=== PATIENT | female | born 1940 | race Caucasian/White ===

== ENCOUNTER 2022-01-11 21:38 | Observation (INO) | payer MEDICARE, MEDICAID, SELFPAY ==
--- NOTE | ~2022-01-11 | CT_ITS ---
EXAMINATION: CT HEAD WITHOUT CONTRAST CT CERVICAL SPINE WITHOUT CONTRAST CLINICAL INFORMATION: Fall. Pain. COMPARISON: CT head and cervical spine from 09/07/2009. TECHNIQUE: Contiguous axial imaging was performed from the skull base to vertex without intravenous administration of contrast. Contiguous axial imaging was performed from the upper chest through the skull base without intravenous administration of contrast. Coronal and sagittal reformats were obtained at the acquisition workstation. This CT examination was performed using dose optimization techniques as appropriate, variously including the following: *Automated exposure control. *Adjustment of mA and/or kV according to patient size (this includes techniques or standardized protocols for targeted exams where dose is matched to indication/reason for exam; i.e. extremities or head). *Use of iterative reconstruction technique. DLP: 1039 mGy-cm FINDINGS: Head: There is no evidence of acute intracranial hemorrhage or edematous territorial infarction. Scattered hypoattenuation in the periventricular and deep white matter are consistent with moderate microangiopathy. Coates-white matter differentiation is preserved. Proportional prominence of the ventricles and sulcal spaces. No evidence for obstructive hydrocephalus. Mild prominence of the CSF space posterior to the cerebellum. No abnormal mass effect or midline shift. No extra-axial fluid collections. Calcific atherosclerotic disease of the intracranial internal carotid and vertebral arteries. No hyperdense vessel sign. Small subgaleal and subcutaneous hematoma along the posterior vertex, measuring up to 0.5 cm in depth. No associated osseous abnormalities. No acute soft tissue or osseous abnormalities. Mild mucosal thickening of the paranasal sinuses. The mastoid air cells and middle ear cavities are clear. Bilateral lens extractions. Cervical Spine: The atlantooccipital and atlantoaxial articulations remain well aligned. Straightening of the normal cervical lordosis. Otherwise, there is anatomic alignment of the vertebral bodies and posterior elements. No evidence of acute fracture or subluxation. The vertebral body heights are maintained. Moderate degenerative disc disease at C5-C6 and C6-C7 with disc/osteophyte complex formation. Facet and uncovertebral joint arthropathy leads osseous encroachment on the neural foramina at C5-C6 and C6-C7. There is no prevertebral soft tissue swelling. The thyroid gland and remaining cervical soft tissues are normal in appearance. The lung apices demonstrate no abnormalities. CT/CT cervical spine wo con IMPRESSION: 1. No evidence of acute intracranial hemorrhage or edematous territorial infarction. Moderate underlying microangiopathy and generalized cerebral volume loss. 2. No evidence of acute fracture or traumatic subluxation of the cervical spine. Mild to moderate multilevel degenerative spondyloarthropathy of the cervical spine. 3. Small posterior scalp hematoma without associated osseous abnormalities.
[2022-01-11 21:43] VITALS: BP 151/68; PULSE 91; RESP 18; TEMP 37.6; O2SAT 96; BMI 29.2
--- NOTE | 2022-01-11 22:34 | ED_ITS ---
HPI - Fall General Chief Complaint: Fall Stated Complaint: head lac - Fall Time Seen by Provider: 01/11/22 22:34 Source: family Limitations: altered mental status History of Present Illness HPI Narrative: Patient with history of dementia legally blind was going to the bathroom while on the way she fell came with laceration to back of the head patient has dementia unwitnessed fall patient does not remember what cause of fall patient does not fall very often and able to manage at home without fall patient denied any chest pain but does not know what made her fall patient has early dementia and forgetfulness Related Data Allergies Allergy/AdvReac Type Severity Reaction Status Date / Time No Known Allergies Allergy Unknown Unverified 05/18/20 16:50 [No Known Allergies*] Review of Systems Review of Systems: Yes all other systems are reviewed and are negative [facility] Social History Social History Advance Directives: No Physical Exam Vital Signs: Vital Signs: Last Vital Signs Temp 97.5 F 01/12/22 00:00 Pulse 84 01/12/22 00:00 Resp 18 01/12/22 00:00 BP 150/79 H 01/12/22 00:00 Pulse Ox 97 01/12/22 00:00 BMI result Body Mass Index 29.2 Appearance: Alert. And awake No acute distress. Eyes: PERRLA, No Nystagmus legally blind HEENT: Pharynx normal. Oral Mucosa laceration at the occipital area Neck: Normal inspection. Neck supple. No midline tenderness CVS: Normal heart rate and rhythm. Pulses normal. Respiratory: No respiratory distress. Equal air entry bilateral, no wheezing/rales/rhonchi Abdomen: Soft and nontender. Bowel sounds are present, no mass palpable, Skin: Skin warm and dry. Normal skin color. Normal skin turgor. Extremities: No lower extremity edema. No calf tenderness Neuro: Oriented X 3. No motor deficit. Procedures Laceration Laceration 1: Site: scalp Size (cm): 3 Description: linear Skin layer closed with: other (arianne #5) MDM - Fall MDM Narrative Medical decision making narrative: Patient status post fall likely mechanical or exact etiology not very clear as patient is forgetful and does not know what made her fall she has elevated troponin to 70 without any significant EKG changes, patient had elevated troponin in 03/20 also will repeat troponin patient takes baby aspirin daily at this time there is no chest pain will admit patient for possible syncope and elevated troponin. CT head and C-spine negative Medical Records Attestation: I reviewed the patient's medical records. Lab Data Attestation: I reviewed the patient's lab results. Result diagrams: 01/12/22 00:16 01/12/22 00:16 Labs: Lab Results 01/12/22 01/12/22 01/12/22 Range/Units 00:16 00:16 00:16 WBC 9.2 (4.8-10.8) X10*3/uL RBC 5.00 (4.20-5.50) X10*6/uL Hgb 13.7 (12.0-16.0) g/dl Hct 42.7 (37.0-47.0) % MCV 85.4 (80.0-98.0) fL MCH 27.4 (27.0-33.0) pg MCHC 32.1 (31.0-35.0) g/dl RDW 13.5 (11.0-16.0) % Plt Count 163 (160-400) X10*3/uL MPV 11.2 (9.4-12.3) fL Immature Gran % (Auto) 0.5 H (0.0-0.4) % Neut % (Auto) 79.3 H (45-73) % Lymph % (Auto) 9.8 L (20-40) % [place] % (Auto) 8.9 (2-11) % Eos % (Auto) 1.1 (0-4) % Baso % (Auto) 0.4 (0-2) % Lymph # (Auto) 0.9 L (1.2-4.9) X10*3/uL [place] # (Auto) 0.8 (0.1-1.2) X10*3/uL Eos # (Auto) 0.1 (0.0-0.4) X10*3/uL Baso # (Auto) 0.0 (0.0-0.2) X10*3/uL Abs Immat Gran (auto) 0.05 H (0.00-0.03) X10*3/uL Absolute Neuts (auto) 7.3 (2.0-8.3) x10*3/uL Absolute Nucleated RBC 0.000 (0.0-0.012) X10*3/uL Nucleated RBC % (auto) 0.0 (0.0-0.2) /100WBC Sodium 135 (135-145) mmol/L Potassium 4.2 (3.3-5.1) mmol/L Chloride 102 (96-108) mmol/L Carbon Dioxide 22 (22-29) mmol/L Anion Gap 15 (12-20) BUN 22 H (9-16) mg/dL Creatinine 1.18 (0.5-1.4) mg/dL Estim Creat Clear Calc 34.9 Estimated GFR 44 Random Glucose 134 H (60-115) mg/dL Calcium 9.2 (8.4-10.2) mg/dL Total Bilirubin 0.4 (0.0-1.0) mg/dL AST 30 (5-31) U/L ALT 20 (0-31) U/L Alkaline Phosphatase 68 (39-117) U/L Troponin I High Sens 70.2 H* (<3.5-17.0) ng/L Total Protein 7.0 (6.5-8.0) g/dL Albumin 3.8 (3.5-5.0) g/dL COVID-19 (YOSSI) (Negative) COVID-19 Clin Com 01/12/22 Range/Units 00:16 WBC (4.8-10.8) X10*3/uL RBC (4.20-5.50) X10*6/uL Hgb (12.0-16.0) g/dl Hct (37.0-47.0) % MCV (80.0-98.0) fL MCH (27.0-33.0) pg MCHC (31.0-35.0) g/dl RDW (11.0-16.0) % Plt Count (160-400) X10*3/uL MPV (9.4-12.3) fL Immature Gran % (Auto) (0.0-0.4) % Neut % (Auto) (45-73) % Lymph % (Auto) (20-40) % [place] % (Auto) (2-11) % Eos % (Auto) (0-4) % Baso % (Auto) (0-2) % Lymph # (Auto) (1.2-4.9) X10*3/uL [place] # (Auto) (0.1-1.2) X10*3/uL Eos # (Auto) (0.0-0.4) X10*3/uL Baso # (Auto) (0.0-0.2) X10*3/uL Abs Immat Gran (auto) (0.00-0.03) X10*3/uL Absolute Neuts (auto) (2.0-8.3) x10*3/uL Absolute Nucleated RBC (0.0-0.012) X10*3/uL Nucleated RBC % (auto) (0.0-0.2) /100WBC Sodium (135-145) mmol/L Potassium (3.3-5.1) mmol/L Chloride (96-108) mmol/L Carbon Dioxide (22-29) mmol/L Anion Gap (12-20) BUN (9-16) mg/dL Creatinine (0.5-1.4) mg/dL Estim Creat Clear Calc Estimated GFR Random Glucose (60-115) mg/dL Calcium (8.4-10.2) mg/dL Total Bilirubin (0.0-1.0) mg/dL AST (5-31) U/L ALT (0-31) U/L Alkaline Phosphatase (39-117) U/L Troponin I High Sens (<3.5-17.0) ng/L Total Protein (6.5-8.0) g/dL Albumin (3.5-5.0) g/dL COVID-19 (YOSSI) Negative (Negative) COVID-19 Clin Com See Note ECG Data Attestation: I personally reviewed and interpreted this ECG as follows: Interpretation: Normal sinus rhythm with heart rate 78 beats per minute T inversion in lead 1 a nd aVL normal axis normal intervals no acute change from the EKG in 2019 Discharge Plan Discharge Clinical Impression: Fall, Laceration of head, Elevated troponin I level Patient Disposition: Admitted As Inpatient
--- NOTE | 2022-01-11 22:43 | ECG_ITS ---
Test Reason : FALL Blood Pressure : / mmHG Vent. Rate : 078 BPM Atrial Rate : 078 BPM P-R Int : 178 ms QRS Dur : 088 ms QT Int : 380 ms P-R-T Axes : 061 030 097 degrees QTc Int : 433 ms Normal sinus rhythm T wave abnormality, consider lateral ischemia Abnormal ECG When compared with ECG of 22-MAR-2020 12:26, No significant change was found Referred By: Oneil Pagan Electronically Signed By:MERLE ELKINS MD
[2022-01-11 22:45] VITALS: PULSE 80; O2SAT 95
[2022-01-12] VITALS (8 sets, daily range): BP systolic 125–177; BP diastolic 52–99; PULSE 63–85; RESP 11–18; TEMP 36.3–37.4; O2SAT 95–97
[2022-01-12 00:20] LABS: MANUAL DIFF FLAG NO
[2022-01-12 00:22] LABS: Basophils Percent Auto 0.4 % (0-2); Eosinophils Absolute Auto 0.1 X10*3/uL (0.0-0.4); Eosinophils Percent Auto 1.1 % (0-4); Hematocrit 42.7 % (37.0-47.0); Hemoglobin 13.7 g/dl (12.0-16.0); Imm Gran Abs Auto 0.05 X10*3/uL (0.00-0.03); Imm Gran Pct Auto 0.5 % (0.0-0.4); Lymphocytes Absolute Auto 0.9 X10*3/uL (1.2-4.9); Lymphocytes Percent Auto 9.8 % (20-40); Mean Corpuscular HGB Conc 32.1 g/dl (31.0-35.0); Mean Corpuscular Hemoglobin 27.4 pg (27.0-33.0); Mean Corpuscular Volume 85.4 fL (80.0-98.0); Mean Platelet Volume 11.2 fL (9.4-12.3); Monocytes Absolute Auto 0.8 X10*3/uL (0.1-1.2); Monocytes Percent Auto 8.9 % (2-11); Neutrophils Absolute Auto 7.3 x10*3/uL (2.0-8.3); Neutrophils Percent Auto 79.3 % (45-73); Platelet Count 163 X10*3/uL (160-400); Red Cell Distribution Width 13.5 % (11.0-16.0); White Blood Count 9.2 X10*3/uL (4.8-10.8)
[2022-01-12 00:40] LABS: COVID-19 Test Negative (Negative)
[2022-01-12 00:43] LABS: Troponin-I High Sensitivity 70.2 ng/L (<3.5-17.0)
--- NOTE | 2022-01-12 00:45 | PC.NURSE ---
pt removing cardiac leads. pt reassured and educated that we need to monitor her.
[2022-01-12 00:49] LABS: Alanine Aminotransferase 20 U/L (0-31); Albumin Level 3.8 g/dL (3.5-5.0); Alkaline Phosphatase 68 U/L (39-117); Anion Gap 15 (12-20); Aspartate Amino Transferase 30 U/L (5-31); Bilirubin Total 0.4 mg/dL (0.0-1.0); Blood Urea Nitrogen 22 mg/dL (9-16); Calcium 9.2 mg/dL (8.4-10.2); Carbon Dioxide 22 mmol/L (22-29); Chloride 102 mmol/L (96-108); Creatinine Clr Calc Pharmacy 34.9; Estimated Glomerular Filt Rate 44; Glucose Random 134 mg/dL (60-115); Potassium 4.2 mmol/L (3.3-5.1); Sodium 135 mmol/L (135-145)
--- NOTE | 2022-01-12 02:31 | PC.NURSE ---
pt has a laceration to the back of head cleansed with NS by dairy manufacturing technologist. MD govea closed lac with 4 arianne.
--- NOTE | 2022-01-12 02:32 | PC.NURSE ---
pt attempting to remove cardiac leads, spo2 and pulling BP cuff off prior to getting a reading
--- NOTE | 2022-01-12 03:03 | PC.NURSE ---
daughter upset that pt has a bruise r/t blood draw. pt dtr increasingly mad about an unsuccessful IV attempt, stating you need to get people who know what they are doing, this isnt practice dtr reassured, this RN apologized for the blood draws/iv attempts and educated dtr that it is important to get this bloodwork to monitor the patients troponin level as well as needing an IV for admission
--- NOTE | 2022-01-12 03:32 | PC.NURSE ---
pt attempting to climb OOB, redirection/reassurance has no effect, pt repositioned in bed by 2 RN, warm blanket given
--- NOTE | 2022-01-12 03:46 | PC.NURSE ---
This grant writer attempted to cannulate patient but she kept moving her arm. Unable to advance the cannula. Attempted to cannulate again in right arm but again able to advance. Needle pulled.. Patient's daughter began to state that we were leaving bruises and she told us her mother was sensitive.
[2022-01-12 04:09] LABS: Troponin-I High Sensitivity 76.8 ng/L (<3.5-17.0)
--- NOTE | 2022-01-12 04:54 | PC.NURSE ---
This Pct has had to re apply pts monitor 3 times,pt keeps removing the monitor,unable to place her back on she is refusing and keeps taking it off. Rn aware
--- NOTE | 2022-01-12 05:34 | PC.NURSE ---
Patient attempting to get out of bed, hit staff and take off monitors. Patient put in a hospital bed with alarm set so that staff are alerted when she attempts to get up as she is high risk for fall. Patient also flipped off staff numerous times when redirected.
--- NOTE | 2022-01-12 08:56 | PHA.MEDREC ---
Pharmacy Consult ? Medication Reconciliation Pharmacy has completed the medication reconciliation.
[2022-01-12 10:35] LABS: Troponin-I High Sensitivity 85.7 ng/L (<3.5-17.0)
--- NOTE | 2022-01-12 11:08 | P.HPHOSP_ITS ---
History of Present Illness Date of Service: 01/12/22 Chief Complaint: fall 81F who is legally blind presented with unwitnessed fall. patient states whe was on way to bathroom, she fell and had laceration to head. she is poor historian, denies LOC, chest pain, palpitations, light headedness. in ED troponin found to be elevated 70.2 and 85.7. ekg with NSR 78 and some t wave inversions I and AVL. Review of Systems Review of Systems: Constitutional: Denies fever, denies Chills Eyes: denies blurry vision ENT: denies sore throat CVS: denies chest pain Respiratory: Denies dyspnea GI: no abdominal pain : denies dysuria MSK: denies neck pain Skin: denies rash Neuro: denies specific motor weakness Psych: denies suicidal ideation Endocrine: denies heat/cold intolerance Hematologic: denies easy bleeding Allergy: denies hives [facility] Medical History Blind Diabetes HLD (hyperlipidemia) HTN (hypertension) Family History Other No family history of cardiovascular disease Social History Alcohol intake: never Patient Tobacco Use Status: Former Tobacco user Use of substances other than those prescribed or required for medical reasons: No Advance Directives: No Meds Allergies Allergy/AdvReac Type Severity Reaction Status Date / Time No Known Allergies Allergy Unknown Unverified 05/18/20 16:50 [No Known Allergies*] Active Medications: Current Medications Amlodipine Besylate (Amlodipine Besylate 10 Mg Tablet) 10 mg PO DAILY [facility]; Protocol Aspirin (Aspirin Enteric Coated 81 Mg Tablet.) 81 mg PO DAILY [facility] Atorvastatin Calcium (Atorvastatin Calcium 20 Mg Tablet) 20 mg PO DAILY [facility] Dextrose (Dextrose 50 % 25 Gm/50 Ml Syringe) 25 gm IVPUSH Q15M PRN; Protocol PRN Reason: per Hypoglycemia Standing Ord. Enoxaparin Sodium (Enoxaparin Sodium 40 Mg/0.4 Ml Syringe) 40 mg SUBCUT Q24H [facility] Glucose (Glucose Gel 15 Gm Gel..Gram.) 15 gm PO Q15M PRN; Protocol PRN Reason: per Hypoglycemia Standing Ord. Insulin Human Lispro (Insulin Lispro 100 Unit/Ml 3 Ml Vial) 0 unit SUBCUT QIDACHS [facility]; Protocol Lisinopril (Lisinopril 40 Mg Tablet) 40 mg PO DAILY [facility]; Protocol Non-Formulary Medication (Ofloxacin) 1 drop EYE-BOTH QID [facility] Prednisolone Acetate (Prednisolone Acetate 1 % Oph Susp 5 Ml Drpbtl) 1 drop EYE-BOTH QID [facility] Sertraline HCl (Sertraline Hcl 25 Mg Tablet) 25 mg PO DAILY [facility] Sodium Chloride (0.9 % Sodium Chloride Flush 3 Ml Syringe) 3 ml IVFLUSH QSHIFT [facility] Home Medications Medication Instructions Recorded Confirmed Last Taken Type amlodipine 10 mg tablet 1 tab PO DAILY 01/12/22 01/12/22 Unknown History aspirin 81 mg tablet,delayed 1 tab PO DAILY 01/12/22 01/12/22 Unknown History release atorvastatin 20 mg tablet 1 tab PO DAILY 01/12/22 01/12/22 Unknown History blood sugar diagnostic (FreeStyle 01/12/22 01/12/22 Unknown History Lite Strips) dulaglutide 1.5 mg/0.5 mL 0.5 ml SUBCUT MO 01/12/22 01/12/22 01/07/22 History subcutaneous pen injector (Trulicity) lisinopril 40 mg tablet 1 tab PO DAILY 01/12/22 01/12/22 Unknown History ofloxacin 0.3 % eye drops 1 drp QID 01/12/22 01/12/22 Unknown History prednisolone acetate 1 % eye 1 drp QID 01/12/22 01/12/22 Unknown History drops,suspension sertraline 25 mg tablet 1 tab PO DAILY 01/12/22 01/12/22 Unknown History Physical Exam Vital Signs and Narrative: Vital Signs: Last Vital Signs Temp 97.6 F 01/12/22 05:54 Pulse 72 01/12/22 05:54 Resp 16 01/12/22 05:54 BP 177/57 H 01/12/22 05:54 Pulse Ox 97 01/12/22 05:54 BMI result Body Mass Index 29.2 General: no acute distress HEENT: blind Neck: normal to visual inspection CVS: S1, S2, RRR Resp: CTA bilateral Chest: non tender GI: soft, non tender, non distended : no CVA tenderness Skin: no rashes Extremities: no edema Neuro: Oriented X2, grossly intact Psych: cooperative Results Labs CBC and Chem 7: 01/12/22 00:16 01/12/22 00:16 Labs: Laboratory Results - last 24 hr 01/12/22 01/12/22 01/12/22 00:16 00:16 00:16 MCV 85.4 MCH 27.4 MCHC 32.1 RDW 13.5 Plt Count 163 MPV 11.2 Immature Gran % (Auto) 0.5 H Neut % (Auto) 79.3 H Lymph % (Auto) 9.8 L [place] % (Auto) 8.9 Eos % (Auto) 1.1 Baso % (Auto) 0.4 Lymph # (Auto) 0.9 L [place] # (Auto) 0.8 Eos # (Auto) 0.1 Baso # (Auto) 0.0 Abs Immat Gran (auto) 0.05 H Absolute Neuts (auto) 7.3 Absolute Nucleated RBC 0.000 Nucleated RBC % (auto) 0.0 Anion Gap 15 Estim Creat Clear Calc 34.9 Estimated GFR 44 Random Glucose 134 H Calcium 9.2 Total Bilirubin 0.4 AST 30 ALT 20 Alkaline Phosphatase 68 Troponin I High Sens 70.2 H* Total Protein 7.0 Albumin 3.8 COVID-19 (YOSSI) COVID-Vive Unique Com 01/12/22 01/12/22 01/12/22 00:16 03:26 10:10 MCV MCH MCHC RDW Plt Count MPV Immature Gran % (Auto) Neut % (Auto) Lymph % (Auto) [place] % (Auto) Eos % (Auto) Baso % (Auto) Lymph # (Auto) [place] # (Auto) Eos # (Auto) Baso # (Auto) Abs Immat Gran (auto) Absolute Neuts (auto) Absolute Nucleated RBC Nucleated RBC % (auto) Anion Gap Estim Creat Clear Calc Estimated GFR Random Glucose Calcium Total Bilirubin AST ALT Alkaline Phosphatase Troponin I High Sens 76.8 H* 85.7 H* Total Protein Albumin COVID-19 (YOSSI) Negative COVID-19 Clin Com See Note Imaging Radiologist's Impressions: Impressions Cervical Spine CT 01/11/22 23:40 IMPRESSION: 1. No evidence of acute intracranial hemorrhage or edematous territorial infarction. Moderate underlying microangiopathy and generalized cerebral volume loss. 2. No evidence of acute fracture or traumatic subluxation of the cervical spine. Mild to moderate multilevel degenerative spondyloarthropathy of the cervical spine. 3. Small posterior scalp hematoma without associated osseous abnormalities. Head CT 01/11/22 23:40 IMPRESSION: 1. No evidence of acute intracranial hemorrhage or edematous territorial infarction. Moderate underlying microangiopathy and generalized cerebral volume loss. 2. No evidence of acute fracture or traumatic subluxation of the cervical spine. Mild to moderate multilevel degenerative spondyloarthropathy of the cervical spine. 3. Small posterior scalp hematoma without associated osseous abnormalities. Assessment and Plan (1) Fall: Status: Acute Plan 81F presented with fall, found to have elevated troponin fall likely mechanical monitor on tele pt eval troponemia denies chest pain likely has underlying CAD continue asa, statin cardio eval htn amlodipne, lisinopril DM insulin mood disorder sertraline Quality Stroke Does the patient have a stroke diagnosis?: No VTE Prior VTE?: No VTE Risk Level:: Medical - moderate - high VTE Device Contraindication: Treatment Not Indicated VTE Drug Contraindication: N/A - Med Ordered
[2022-01-12 13:29] LABS: Glucose, Whole Blood 122 mg/dL (60-115)
[2022-01-12] MEDS: Atorvastatin Calcium 20 MG TABLET PO (14:12)
[2022-01-12] MEDS: Enoxaparin Sodium 40 MG/0.4 ML SYRINGE SUBCUT (14:12)
[2022-01-12] MEDS: Aspirin Enteric Coated 81 MG TABLET.DR PO (14:12)
[2022-01-12] MEDS: amLODIPine Besylate 10 MG TABLET PO (14:12)
[2022-01-12] MEDS: Sertraline HCL 25 MG TABLET PO (14:12)
[2022-01-12] MEDS: lisinopriL 40 MG TABLET PO (14:12)
[2022-01-12 14:22] LABS: Glucose, Whole Blood 105 mg/dL (60-115)
[2022-01-12 18:25] LABS: Glucose, Whole Blood 125 mg/dL (60-115)
[2022-01-12 22:16] LABS: Glucose, Whole Blood 118 mg/dL (60-115)
--- NOTE | 2022-01-12 22:21 | PC.NURSE ---
pt given a sandwich and diet raiza saba. daughter at bedside
--- NOTE | 2022-01-12 22:41 | PC.NURSE ---
Report called to Hayden BLANCA
[2022-01-13] VITALS: BP 156/74; PULSE 71; RESP 18; TEMP 36.7; O2SAT 98
[2022-01-13] MEDS: 0.9 % Sodium Chloride Flush 3 ML SYRINGE IVFLUSH ×2 (00:29→09:21)
[2022-01-13] MEDS: Acetaminophen 325 MG TABLET 650 MG PO ×2 (00:42→11:17)
[2022-01-13 04:00] VITALS: BP 126/57; PULSE 54; RESP 18; TEMP 36.3; O2SAT 97
[2022-01-13 07:14] LABS: Hematocrit 44.3 % (37.0-47.0); Hemoglobin 14.2 g/dl (12.0-16.0); Mean Corpuscular HGB Conc 32.1 g/dl (31.0-35.0); Mean Corpuscular Hemoglobin 27.4 pg (27.0-33.0); Mean Corpuscular Volume 85.5 fL (80.0-98.0); Mean Platelet Volume 12.2 fL (9.4-12.3); Platelet Count 144 X10*3/uL (160-400); Red Blood Count 5.18 X10*6/uL (4.20-5.50); Red Cell Distribution Width 13.4 % (11.0-16.0); White Blood Count 5.2 X10*3/uL (4.8-10.8)
[2022-01-13 07:39] LABS: Anion Gap 11 (12-20); Blood Urea Nitrogen 16 mg/dL (9-16); Carbon Dioxide 26 mmol/L (22-29); Chloride 104 mmol/L (96-108); Estimated Glomerular Filt Rate > 60; Glucose Fasting 117 mg/dL (60-99); Potassium 4.1 mmol/L (3.3-5.1); Sodium 137 mmol/L (135-145)
[2022-01-13 07:58] VITALS: BP 150/65; PULSE 64; RESP 20; TEMP 36.4; O2SAT 98
[2022-01-13 08:10] LABS: Glucose, Whole Blood 133 mg/dL (60-115)
[2022-01-13] MEDS: Aspirin Enteric Coated 81 MG TABLET.DR PO (09:21)
[2022-01-13] MEDS: Sertraline HCL 25 MG TABLET PO (09:21)
[2022-01-13] MEDS: lisinopriL 40 MG TABLET PO (09:21)
[2022-01-13] MEDS: prednisoLONE Acetate 1 % Oph Susp 5 ML DRPBTL 1 DROP EYE-BOTH ×2 (09:21→12:38)
[2022-01-13] MEDS: amLODIPine Besylate 10 MG TABLET PO (09:21)
[2022-01-13] MEDS: Atorvastatin Calcium 20 MG TABLET PO (09:21)
--- NOTE | 2022-01-13 09:56 | HO.PM.IMPN ---
Subjective Subjective Date of Service: 01/13/22 Interval History: cc: fall interval history:no complaints Cardiovascular Cardiovascular: Reports no additional cardiovascular complaints Respiratory Respiratory: Reports no additional respiratory complaints Physical Exam Vital Signs: Vital Signs: Last Vital Signs Temp 97.6 F 01/13/22 07:58 Pulse 64 01/13/22 07:58 Resp 20 01/13/22 07:58 BP 150/65 H 01/13/22 07:58 Pulse Ox 98 01/13/22 07:58 BMI result Body Mass Index 29.2 General: AO X 3, no acute distress Resp: CTA bilateral, no accessory muscles used CVS: S1,S2,RRR GI: soft, non tender, non distended Neuro: motor grossly intact, alert Psych: appropriate affect, appropriate insight Objective Data Active Medications Amlodipine Besylate (Amlodipine Besylate 10 Mg Tablet) 10 mg PO DAILY [facility]; Protocol Last Admin: 01/13/22 09:21 Dose: 10 mg Documented by: MAHNAZ Aspirin (Aspirin Enteric Coated 81 Mg Tablet.Dr) 81 mg PO DAILY [facility] Last Admin: 01/13/22 09:21 Dose: 81 mg Documented by: MAHNAZ Atorvastatin Calcium (Atorvastatin Calcium 20 Mg Tablet) 20 mg PO DAILY [facility] Last Admin: 01/13/22 09:21 Dose: 20 mg Documented by: MAHNAZ Dextrose (Dextrose 50 % 25 Gm/50 Ml Syringe) 25 gm IVPUSH Q15M PRN; Protocol PRN Reason: per Hypoglycemia Standing Ord. Enoxaparin Sodium (Enoxaparin Sodium 40 Mg/0.4 Ml Syringe) 40 mg SUBCUT Q24H [facility] Last Admin: 01/12/22 14:12 Dose: 40 mg Documented by: RENETTA Glucose (Glucose Gel 15 Gm Gel..Gram.) 15 gm PO Q15M PRN; Protocol PRN Reason: per Hypoglycemia Standing Ord. Insulin Human Lispro (Insulin Lispro 100 Unit/Ml 3 Ml Vial) 0 unit SUBCUT QIDACHS [facility]; Protocol Last Admin: 01/13/22 08:19 Dose: Not Given Documented by: MAHNAZ Non-Admin Reason: No Insulin Coverage Lisinopril (Lisinopril 40 Mg Tablet) 40 mg PO DAILY [facility]; Protocol Last Admin: 01/13/22 09:21 Dose: 40 mg Documented by: HO.DOBROB Non-Formulary Medication (Ofloxacin) 1 drop EYE-BOTH QID [facility] Prednisolone Acetate (Prednisolone Acetate 1 % Oph Susp 5 Ml Drpbtl) 1 drop EYE-BOTH QID [facility] Last Admin: 01/13/22 09:21 Dose: 1 drop Documented by: MAHNAZ Sertraline HCl (Sertraline Hcl 25 Mg Tablet) 25 mg PO DAILY [facility] Last Admin: 01/13/22 09:21 Dose: 25 mg Documented by: MAHNAZ Sodium Chloride (0.9 % Sodium Chloride Flush 3 Ml Syringe) 3 ml IVFLUSH QSHIFT [facility] Last Admin: 01/13/22 09:21 Dose: 3 ml Documented by: MAHNAZ Labs CBC & Chem 7: 01/13/22 06:41 01/13/22 06:41 Labs: Laboratory Results - last 24 hr 01/12/22 01/12/22 01/12/22 10:10 13:25 14:17 MCV MCH MCHC RDW Plt Count MPV Absolute Nucleated RBC Nucleated RBC % (auto) Anion Gap Estim Creat Clear Calc Estimated GFR POC Glucose 122 H 105 Fasting Glucose Calcium Troponin I High Sens 85.7 H* 01/12/22 01/12/22 01/13/22 18:19 22:04 06:41 MCV 85.5 MCH 27.4 MCHC 32.1 RDW 13.4 Plt Count 144 L MPV 12.2 Absolute Nucleated RBC 0.000 Nucleated RBC % (auto) 0.0 Anion Gap Estim Creat Clear Calc Estimated GFR POC Glucose 125 H 118 H Fasting Glucose Calcium Troponin I High Sens 01/13/22 01/13/22 06:41 07:56 MCV MCH MCHC RDW Plt Count MPV Absolute Nucleated RBC Nucleated RBC % (auto) Anion Gap 11 L Estim Creat Clear Calc 49.0 Estimated GFR > 60 POC Glucose 133 H Fasting Glucose 117 H Calcium 9.0 Troponin I High Sens Assessment and Plan (1) Blind: Status: Acute Plan 81F presented with fall, found to have elevated troponin fall likely mechanical pt eval troponemia denies chest pain likely has underlying CAD continue asa, statin cardio eval htn amlodipine, lisinopril DM insulin mood disorder sertraline reason for continued hospitalization: cardio and pt eval pending Quality Stroke Does the patient have a stroke diagnosis?: No VTE Prior VTE?: No VTE Risk Level:: Medical - moderate - high VTE Device Contraindication: Treatment Not Indicated VTE Drug Contraindication: N/A - Med Ordered
--- NOTE | 2022-01-13 10:44 | MHC.CM.PN ---
met with pt w/interpertaor pt appears confused called and spoke with daniele whois her health care administrator and hcp dc plan is home transported by daniele ,who has a scedul;ed meeting this week with [facility] to set up additional services
[2022-01-13 11:03] LABS: Appearance Urine CLEAR; Color Urine YELLOW; Glucose Urine UA NEG (NEG); Leukocyte Esterase Urine TRACE (NEG); Nitrite Urine NEG (NEG); Specific Gravity - Urine <= 1.005 (1.005-1.025); Urine Blood NEG (NEG); Urine Ketones NEG (NEG); Urine Protein NEG (NEG-TRACE)
[2022-01-13 11:13] VITALS: BP 138/72; PULSE 60; RESP 18; TEMP 36.8; O2SAT 98
[2022-01-13 11:19] LABS: RBC Urine 0 /HPF (0); Squamous Epithelial Cell Urine TRACE /LPF; WBC Urine 0-2 /HPF (0-4)
[2022-01-13 11:44] LABS: Glucose, Whole Blood 169 mg/dL (60-115)
[2022-01-13] MEDS: Insulin Lispro 100 UNIT/ML 3 ML VIAL SUBCUT (12:37)
[2022-01-13] MEDS: Enoxaparin Sodium 40 MG/0.4 ML SYRINGE SUBCUT (12:38)
--- NOTE | 2022-01-13 13:16 | PM.CNCAR ---
History of Present Illness History of Present Illness Date of Service: 01/13/22 Requesting physician: Waldo Mistry Consult reason: troponin elevation Chief complaint: Tropnemia Fall Narrative: I was consulted to see this patient due to elevated troponin. She was brought to the hospital because she had a fall. History was obtained with help of lang interpreter although despite lang interpreter I could not obtain history as she appears to be confused. History was obtained from the chart. Patient is blind and as per her she lives alone at home. This is difficult to determine. Patient was brought in because she fell down. There are no clear reported cardiac symptoms at this point time. She currently complains of diffuse body aches. No chest pain. Troponin was drawn for unclear reasons. EKG showed nonspecific changes. She did not have any clear chest pain. There was no reported loss of consciousness. Her troponins were flat. Cardiology consult was sought for that. Review of Systems Review of Systems: Yes Unobtainable due to mental status Neurologic: Reports confusion Psychiatric: Psychiatric: Reports confusion PMFSH Past Medical History Medical History Blind Diabetes HLD (hyperlipidemia) HTN (hypertension) Family History Family History Other No family history of cardiovascular disease Social History Social History Household Members: None Household Members Other:: dog and God Do you presently have visiting nurse or other home services: No (daughter helps her cook but doesn't) Alcohol intake: never Patient Tobacco Use Status: Former Tobacco user Tobacco use type: Cigarette Smoked in Last 30 Days: No e-Cigarette/Vaping Use: Never Used Use of substances other than those prescribed or required for medical reasons: No Currently Displaying Signs/Symptoms of Drug Intoxication Withdrawal: No Have you been hit, kicked, punched, or otherwise hurt by someone within the past year? If so, by whom?: No Do you feel safe in your current relationship?: No Is there a partner from a previous relationship who is making you feel unsafe now?: No Are you made to feel afraid or neglected: No Spiritual Healthcare Practices: prays in the mornings and through the day Jewish Healthcare Practices: prays in the mornings and through the day; Yarsanism, but open to other alevism practices Cultural Healthcare Practices: n/a Advance Directives: Yes (daughter has) Advance Directives Information Provided: Yes (declined) Advance Directives on File: No (need to request from her) Advance Directives Date on File: 01/13/22 Do you have thoughts of harming others: None Do you have a plan to hurt others: No Plan Recently lost weight without trying: No Eating poorly because of decreased appetite: No Nutrition Risks: No Nutritional Risk Patient : No : No Poor oral hygiene: No service: No Meds Allergies Allergy/AdvReac Type Severity Reaction Status Date / Time No Known Allergies Allergy Unknown Unverified 05/18/20 16:50 [No Known Allergies*] Active Medications: Current Medications Acetaminophen (Acetaminophen 325 Mg Tablet) 650 mg PO Q6H PRN PRN Reason: mild pain Last Admin: 01/13/22 11:17 Dose: 650 mg Documented by: Amlodipine Besylate (Amlodipine Besylate 10 Mg Tablet) 10 mg PO DAILY [facility]; Protocol Last Admin: 01/13/22 09:21 Dose: 10 mg Documented by: Aspirin (Aspirin Enteric Coated 81 Mg Tablet.Dr) 81 mg PO DAILY [facility] Last Admin: 01/13/22 09:21 Dose: 81 mg Documented by: Atorvastatin Calcium (Atorvastatin Calcium 20 Mg Tablet) 20 mg PO DAILY [facility] Last Admin: 01/13/22 09:21 Dose: 20 mg Documented by: Dextrose (Dextrose 50 % 25 Gm/50 Ml Syringe) 25 gm IVPUSH Q15M PRN; Protocol PRN Reason: per Hypoglycemia Standing Ord. Enoxaparin Sodium (Enoxaparin Sodium 40 Mg/0.4 Ml Syringe) 40 mg SUBCUT Q24H [facility] Last Admin: 01/13/22 12:38 Dose: 40 mg Documented by: Glucose (Glucose Gel 15 Gm Gel..Gram.) 15 gm PO Q15M PRN; Protocol PRN Reason: per Hypoglycemia Standing Ord. Insulin Human Lispro (Insulin Lispro 100 Unit/Ml 3 Ml Vial) 0 unit SUBCUT QIDACHS [facility]; Protocol Last Admin: 01/13/22 12:37 Dose: 2 unit Documented by: Lisinopril (Lisinopril 40 Mg Tablet) 40 mg PO DAILY [facility]; Protocol Last Admin: 01/13/22 09:21 Dose: 40 mg Documented by: Non-Formulary Medication (Ofloxacin) 1 drop EYE-BOTH QID [facility] Prednisolone Acetate (Prednisolone Acetate 1 % Oph Susp 5 Ml Drpbtl) 1 drop EYE-BOTH QID [facility] Last Admin: 01/13/22 12:38 Dose: 1 drop Documented by: Sertraline HCl (Sertraline Hcl 25 Mg Tablet) 25 mg PO DAILY [facility] Last Admin: 01/13/22 09:21 Dose: 25 mg Documented by: Sodium Chloride (0.9 % Sodium Chloride Flush 3 Ml Syringe) 3 ml IVFLUSH QSHIFT [facility] Last Admin: 01/13/22 09:21 Dose: 3 ml Documented by: Home Medications Medication Instructions Recorded Confirmed Last Taken Type amlodipine 10 mg tablet 1 tab PO DAILY 01/12/22 01/12/22 Unknown History aspirin 81 mg tablet,delayed 1 tab PO DAILY 01/12/22 01/12/22 Unknown History release atorvastatin 20 mg tablet 1 tab PO DAILY 01/12/22 01/12/22 Unknown History blood sugar diagnostic (FreeStyle 01/12/22 01/12/22 Unknown History Lite Strips) dulaglutide 1.5 mg/0.5 mL 0.5 ml SUBCUT MO 01/12/22 01/12/22 01/07/22 History subcutaneous pen injector (Trulicity) lisinopril 40 mg tablet 1 tab PO DAILY 01/12/22 01/12/22 Unknown History ofloxacin 0.3 % eye drops 1 drp QID 01/12/22 01/12/22 Unknown History prednisolone acetate 1 % eye 1 drp QID 01/12/22 01/12/22 Unknown History drops,suspension sertraline 25 mg tablet 1 tab PO DAILY 01/12/22 01/12/22 Unknown History Physical Exam Vital Signs: Vital Signs: Last Vital Signs Temp 98.2 F 01/13/22 11:13 Pulse 60 01/13/22 11:13 Resp 18 01/13/22 11:13 BP 138/72 01/13/22 11:13 Pulse Ox 98 01/13/22 11:13 BMI result Body Mass Index 29.2 Const: General: cooperative, comfortable, no acute distress, alert, awake and confusion Nutritional Appearance: overweight Orientation/consciousness: confusion HEENT: Head: Yes normocephalic and Yes atraumatic Neck: Neck: Yes trachea midline, Yes supple and Yes no JVD Resp: Effort & Inspection: normal respiratory effort Auscultation: clear to auscultation bilaterally GI: Auscultation: normal bowel sounds Skin: General skin exam: no rashes or lesions noted and ecchymosis Neuro: General: no focal motor deficits and confusion Extrem: General: Yes no clubbing, cyanosis or edema Objective Labs and Meds Result diagrams: 01/13/22 06:41 01/13/22 06:41 Lab results: Laboratory Results - last 24 hr 01/12/22 01/12/22 01/12/22 13:25 14:17 18:19 WBC RBC Hgb Hct MCV MCH MCHC RDW Plt Count MPV Absolute Nucleated RBC Nucleated RBC % (auto) Sodium Potassium Chloride Carbon Dioxide Anion Gap BUN Creatinine Estim Creat Clear Calc Estimated GFR POC Glucose 122 H 105 125 H Fasting Glucose Calcium Urine Color Urine Appearance Urine pH Ur Specific [place] Urine Protein Urine Glucose (UA) Urine Ketones Urine Blood Urine Nitrite Ur Leukocyte Esterase Urine RBC Urine WBC Ur Squamous Epith Cells Urine Bacteria 01/12/22 01/13/22 01/13/22 22:04 06:41 06:41 WBC 5.2 RBC 5.18 Hgb 14.2 Hct 44.3 MCV 85.5 MCH 27.4 MCHC 32.1 RDW 13.4 Plt Count 144 L MPV 12.2 Absolute Nucleated RBC 0.000 Nucleated RBC % (auto) 0.0 Sodium 137 Potassium 4.1 Chloride 104 Carbon Dioxide 26 Anion Gap 11 L BUN 16 Creatinine 0.84 Estim Creat Clear Calc 49.0 Estimated GFR > 60 POC Glucose 118 H Fasting Glucose 117 H Calcium 9.0 Urine Color Urine Appearance Urine pH Ur Specific [place] Urine Protein Urine Glucose (UA) Urine Ketones Urine Blood Urine Nitrite Ur Leukocyte Esterase Urine RBC Urine WBC Ur Squamous Epith Cells Urine Bacteria 01/13/22 01/13/22 01/13/22 07:56 11:14 Unknown WBC RBC Hgb Hct MCV MCH MCHC RDW Plt Count MPV Absolute Nucleated RBC Nucleated RBC % (auto) Sodium Potassium Chloride Carbon Dioxide Anion Gap BUN Creatinine Estim Creat Clear Calc Estimated GFR POC Glucose 133 H 169 H Fasting Glucose Calcium Urine Color YELLOW Urine Appearance CLEAR Urine pH 6.0 Ur Specific [place] <= 1.005 Urine Protein NEG Urine Glucose (UA) NEG Urine Ketones NEG Urine Blood NEG Urine Nitrite NEG Ur Leukocyte Esterase TRACE H Urine RBC 0 Urine WBC 0-2 Ur Squamous Epith Cells TRACE Urine Bacteria NONE Assessment and Plan (1) Elevated troponin I level: Status: Acute Elevated but flat troponin level with no significant elevation, she had minimally elevated level before as well. Unclear why troponin level was done. Could be related to muscle injury from fall. Unlikely to represent acute coronary syndrome. Patient has no clear ischemic symptoms and came with fall. EKG does not show any significant EKG changes that are concerning at this point time. At this point time continue manage with supportive care. No further cardiac workup is indicated at this point time. Patient requires social intervention given her blindness and question staying at home by herself. Will sign of the case at this point time. Thank you for allowing me to partake in the care Procedures Date of Service Date of Service: 01/13/22
--- NOTE | 2022-01-13 13:51 | PM.DS ---
DS: Providers Provider Date of Service: 01/13/22 Date of admission: 01/12/22 11:06 Primary care physician: Unknown Physician Consults: 01/12/22 11:06 Consult to Cardiology Routine Consulting Provider: Baljinder Mack Reason for consultation: unwitnessed fall, troponemia DS: Diagnosis Discharge Diagnosis (1) Elevated troponin I level: Status: Acute DS: Summary Hospital Course Hospital Course: from initial hpi: Chief Complaint: fall 81F who is legally blind presented with unwitnessed fall. patient states whe was on way to bathroom, she fell and had laceration to head. she is poor historian, denies LOC, chest pain, palpitations, light headedness. in ED troponin found to be elevated 70.2 and 85.7. ekg with NSR? 78 and some t wave inversions I and AVL. hospital course: Patient was admitted for fall and concern over elevated troponin level. Her high sensitivity troponin was flat and peaked at about 80, she was seen by Cardiology who felt this was unlikely ACS. Patient never had any chest pain. She will continue on aspirin statin. For hypertension she will continue with amlodipine and lisinopril. For her diabetes should continue insulin. For mood disorder she will continue sertraline. for fall, this is likely mechanical, she should continue with fall precautions at home. Time Spent with Patient Time attestation: Total time spent providing and/or coordinating discharge services: Discharge coordination time: Greater than 30 minutes Quality: Safe Use of Opioids Does Pt have an Active Cancer Diagnosis on the Problem List?: No Quality: Stroke Does the patient have a stroke diagnosis?: No Physical Exam Vital Signs: Vital Signs: Last Vital Signs Temp 98.2 F 01/13/22 11:13 Pulse 60 01/13/22 11:13 Resp 18 01/13/22 11:13 BP 138/72 01/13/22 11:13 Pulse Ox 98 01/13/22 11:13 BMI result Body Mass Index 29.2 Const General:?cooperative, comfortable, no acute distress, alert, awake and confusion Nutritional Appearance:?overweight Orientation/consciousness:?confusion HEENT Head:?Yes normocephalic and Yes atraumatic Neck Neck:?Yes trachea midline, Yes supple and Yes no JVD Resp Effort & Inspection:?normal respiratory effort Auscultation:?clear to auscultation bilaterally GI Auscultation:?normal bowel sounds Skin General skin exam:?no rashes or lesions noted and ecchymosis Neuro General:?no focal motor deficits and confusion Extrem General:?Yes no clubbing, cyanosis or edema DS: Data Data Completed and Pending Labs on day of discharge: Laboratory Results - last 24 hr 01/12/22 01/12/22 01/12/22 14:17 18:19 22:04 WBC RBC Hgb Hct MCV MCH MCHC RDW Plt Count MPV Absolute Nucleated RBC Nucleated RBC % (auto) Sodium Potassium Chloride Carbon Dioxide Anion Gap BUN Creatinine Estim Creat Clear Calc Estimated GFR POC Glucose 105 125 H 118 H Fasting Glucose Calcium Urine Color Urine Appearance Urine pH Ur Specific [place] Urine Protein Urine Glucose (UA) Urine Ketones Urine Blood Urine Nitrite Ur Leukocyte Esterase Urine RBC Urine WBC Ur Squamous Epith Cells Urine Bacteria 01/13/22 01/13/22 01/13/22 06:41 06:41 07:56 WBC 5.2 RBC 5.18 Hgb 14.2 Hct 44.3 MCV 85.5 MCH 27.4 MCHC 32.1 RDW 13.4 Plt Count 144 L MPV 12.2 Absolute Nucleated RBC 0.000 Nucleated RBC % (auto) 0.0 Sodium 137 Potassium 4.1 Chloride 104 Carbon Dioxide 26 Anion Gap 11 L BUN 16 Creatinine 0.84 Estim Creat Clear Calc 49.0 Estimated GFR > 60 POC Glucose 133 H Fasting Glucose 117 H Calcium 9.0 Urine Color Urine Appearance Urine pH Ur Specific [place] Urine Protein Urine Glucose (UA) Urine Ketones Urine Blood Urine Nitrite Ur Leukocyte Esterase Urine RBC Urine WBC Ur Squamous Epith Cells Urine Bacteria 01/13/22 01/13/22 11:14 Unknown WBC RBC Hgb Hct MCV MCH MCHC RDW Plt Count MPV Absolute Nucleated RBC Nucleated RBC % (auto) Sodium Potassium Chloride Carbon Dioxide Anion Gap BUN Creatinine Estim Creat Clear Calc Estimated GFR POC Glucose 169 H Fasting Glucose Calcium Urine Color YELLOW Urine Appearance CLEAR Urine pH 6.0 Ur Specific [place] <= 1.005 Urine Protein NEG Urine Glucose (UA) NEG Urine Ketones NEG Urine Blood NEG Urine Nitrite NEG Ur Leukocyte Esterase TRACE H Urine RBC 0 Urine WBC 0-2 Ur Squamous Epith Cells TRACE Urine Bacteria NONE Discharge Plan Discharge Patient Disposition: Home, Self-Care Discharge Diagnosis: troponemia, fall Referrals: Physician,Unknown J [Primary Care Provider] - 1 Week Discharge Medications: Continued atorvastatin 20 mg tablet 1 tab PO DAILY 0RF ofloxacin 0.3 % drops 1 drp QID 0RF (DME) FreeStyle Lite Strips Strip MISCELLANEOUS TID 0RF prednisolone acetate 1 % drops,suspension 1 drp QID 0RF amlodipine 10 mg tablet 1 tab PO DAILY 0RF sertraline 25 mg tablet 1 tab PO DAILY 0RF lisinopril 40 mg tablet 1 tab PO DAILY 0RF Trulicity 1.5 mg/0.5 mL pen injector 0.5 ml subcut MO 0RF aspirin 81 mg tablet,delayed release (DR/EC) 1 tab PO DAILY 0RF Discharge Orders: Discharge Order (Routine); Ordered 01/13/22 Ordered By: Waldo Mistry Diet: advance to usual diet Activity on Discharge: As tolerated Stand Alone Forms: Patient Portal Discharge page Care Plan Goals: recovery Health Concerns: fall Plan of Treatment: fall precautions Assessment: see above
--- NOTE | 2022-01-13 14:23 | MHC.CM.PN ---
D/C order for home, self care. Reviewed admitting CM notes: patient's daughter is FLATWORK CATCHER and also has an appt this week w/[facility] for services. Daughter to transport home per CM note.
== END 2022-01-13 15:05 | disposition home or self-care (01) ==
LOC: HO.ED 01-12 03:32 → HO.EDOVER 01-12 11:29 → HO.IMC 01-12 21:18
PROVIDERS: Hospitalist; Admitting Provider Internal Medicine; Emergency Provider Internal Medicine; Visit Provider Internal Medicine
DX: R77.8 Other specified abnormalities of plasma proteins (principal); S01.01XA Laceration without foreign body of scalp, initial encounter; W18.30XA Fall on same level, unspecified, initial encounter; Y93.F9 Activity, other caregiving; Y92.002 Bathroom of unspecified non-institutional (private) residence as the place of occurrence of the external cause; Y99.8 Other external cause status; F03.90 Unspecified dementia, unspecified severity, without behavioral disturbance, psychotic disturbance, mood disturbance, and anxiety; H54.8 Legal blindness, as defined in USA; E11.9 Type 2 diabetes mellitus without complications; I10 Essential (primary) hypertension; E78.5 Hyperlipidemia, unspecified; Z87.891 Personal history of nicotine dependence; Z20.822 Contact with and (suspected) exposure to COVID-19; Z79.4 Long term (current) use of insulin; Z79.82 Long term (current) use of aspirin; Z79.899 Other long term (current) drug therapy
CPT/HCPCS: 36415; 70450; 72125; 80048; 80053; 81001; 81003; 82947; 84484; 85025; 85027; 87635; 93005; 96372; 99219; 99285; J1650

== ENCOUNTER 2022-08-08 22:10 | Emergency (ER) | payer MEDICARE, MEDICAID, SELFPAY ==
--- NOTE | ~2022-08-08 | CT_ITS ---
EXAMINATION: CT ABDOMEN AND PELVIS WITHOUT CONTRAST CLINICAL INFORMATION: Abdominal pain. COMPARISON: CT abdomen pelvis 11/12/2018 TECHNIQUE: Multidetector volumetric imaging was performed from the superior aspect of the liver through the pubic symphysis. Sagittal and coronal reformatted images were obtained on the technologist's workstation. This CT examination was performed using dose optimization techniques as appropriate, variously including the following: *Automated exposure control *Adjustment of mA and/or kV according to patient size (this includes techniques or standardized protocols for targeted exams where dose is matched to indication/reason for exam; i.e. extremities or head) *Use of iterative reconstruction technique DLP: 1414 mGy-cm FINDINGS: LUNG BASES: The visualized lung bases are unremarkable. LIVER, GALLBLADDER, AND BILIARY TREE: The liver is normal in size, shape, and attenuation. No focal hepatic lesion or biliary ductal dilatation is present. The gallbladder is unremarkable with no evidence of radiopaque gallstones, gallbladder wall thickening, or obvious pericholecystic inflammatory changes. PANCREAS: Unremarkable. SPLEEN: Unremarkable. ADRENAL GLANDS: Unremarkable. KIDNEYS AND URETERS: Incidental note made of mild bilateral prominent extrarenal pelvises. No urolithiasis. No perinephric inflammatory changes. No ureterectasis. BLADDER: Mild physiologic distention. GASTROINTESTINAL TRACT: No intestinal dilatation or mural thickening noted. The appendix is not visualized. No pericecal inflammatory changes noted. No free intraperitoneal fluid or gas collections identified. Normal appearance of the stomach aside from a possible small hiatal hernia. ABDOMINAL WALL: A possible urachal diverticulum is noted without associated adjacent inflammatory changes. No abdominal wall intestinal herniation is noted. LYMPH NODES: Normal. VASCULAR: Marked diffuse calcific atherosclerosis. PELVIC VISCERA: Uterus is atrophic. No adnexal lesions noted. OSSEOUS STRUCTURES: Multilevel chronic spondylosis of the thoracolumbar spine which is mild-moderate in degree. No vertebral body compression deformities. CT/CT abdomen pelvis wo IV con IMPRESSION: Unenhanced CT of the abdomen pelvis: *No acute abnormalities identified. *The appendix is not visualized. No pericecal inflammatory changes noted. *Marked diffuse calcific atherosclerosis. Fleischner guidelines were followed.
--- NOTE | ~2022-08-08 | CT_ITS ---
EXAMINATION: CT HEAD WITHOUT CONTRAST CLINICAL INFORMATION: Altered mental status COMPARISON: CT head 01/11/2022. TECHNIQUE: Contiguous axial imaging was performed from the skull base to vertex without intravenous administration of contrast. This CT examination was performed using dose optimization techniques as appropriate, variously including the following: *Automated exposure control *Adjustment of mA and/or kV according to patient size (this includes techniques or standardized protocols for targeted exams where dose is matched to indication/reason for exam; i.e. extremities or head) *Use of iterative reconstruction technique DLP: 1414 mGy-cm FINDINGS: Mild diffuse commensurate prominence of the ventricles and sulci is noted. No intrarenal hemorrhage, tumors or acute infarcts visualized. Mild periventricular white matter patchy hypodensities are noted. Prominent hyperostosis frontalis interna visualized. Bilateral ocular lens extractions are noted. 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 Mild mucosal thickening noted in the right frontal sinus and anterior right ethmoid air cells. No mastoid or middle ear cavity effusions. CT/CT head/brain wo IV con IMPRESSION: *No acute intercranial abnormalities.
[2022-08-08 22:24] VITALS: BP 106/80; BP 150/42; PULSE 69; PULSE 90; RESP 18; TEMP 37.3; O2SAT 95; O2SAT 99; BMI 29.5
[2022-08-08 23:36] LABS: MANUAL DIFF FLAG NO
[2022-08-08 23:37] LABS: Basophils Absolute Auto 0.1 X10*3/uL (0.0-0.2); Basophils Percent Auto 0.6 % (0-2); Eosinophils Absolute Auto 0.2 X10*3/uL (0.0-0.4); Eosinophils Percent Auto 2.7 % (0-4); Hematocrit 39.7 % (37.0-47.0); Hemoglobin 12.8 g/dl (12.0-16.0); Imm Gran Abs Auto 0.03 X10*3/uL (0.00-0.03); Imm Gran Pct Auto 0.4 % (0.0-0.4); Lymphocytes Absolute Auto 2.5 X10*3/uL (1.2-4.9); Lymphocytes Percent Auto 29.1 % (20-40); Mean Corpuscular HGB Conc 32.2 g/dl (31.0-35.0); Mean Corpuscular Hemoglobin 27.5 pg (27.0-33.0); Mean Corpuscular Volume 85.2 fL (80.0-98.0); Mean Platelet Volume 11.4 fL (9.4-12.3); Monocytes Absolute Auto 0.7 X10*3/uL (0.1-1.2); Neutrophils Percent Auto 59.2 % (45-73); Platelet Count 186 X10*3/uL (160-400); Red Blood Count 4.66 X10*6/uL (4.20-5.50); Red Cell Distribution Width 13.2 % (11.0-16.0); White Blood Count 8.5 X10*3/uL (4.8-10.8)
--- NOTE | 2022-08-08 23:59 | ED.AMS ---
HPI - Altered Mental Status General Chief Complaint: Altered Mental Status Stated Complaint: crisis Time Seen by Provider: 08/08/22 22:26 History of Present Illness HPI narrative: Patient is an 82-year-old female from [place], presented today with being very upset on the balcony. Claiming that her daughter sold her house in [place] she is now living in an apartment. Patient with brought to the ED for further evaluation. Patient denies any suicidal homicidal ideation. Complaining of some abdominal pain as well. No nausea no vomiting. No chest pain or shortness of breath. Patient unable to give details. She has a history of diabetes. History of hypertension hyperlipidemia Related Data Home Medications Medication Instructions Recorded Confirmed amlodipine 10 mg tablet 1 tab PO DAILY 01/12/22 01/12/22 aspirin 81 mg tablet,delayed 1 tab PO DAILY 01/12/22 01/12/22 release atorvastatin 20 mg tablet 1 tab PO DAILY 01/12/22 01/12/22 blood sugar diagnostic (FreeStyle 01/12/22 01/12/22 Lite Strips) dulaglutide 1.5 mg/0.5 mL 0.5 ml subcut MO 01/12/22 01/12/22 [facility] lisinopril 40 mg tablet 1 tab PO DAILY 01/12/22 01/12/22 ofloxacin 0.3 % eye drops 1 drp QID 01/12/22 01/12/22 prednisolone acetate 1 % eye 1 drp QID 01/12/22 01/12/22 drops,suspension sertraline 25 mg tablet 1 tab PO DAILY 01/12/22 01/12/22 Allergies Allergy/AdvReac Type Severity Reaction Status Date / Time No Known Allergies Allergy Unknown Unverified 05/18/20 16:50 [No Known Allergies*] Review of Systems Review of Systems: Complaining of abdominal pain, no nausea no vomiting Yes all other systems are reviewed and are negative PMFSH Past Medical History Attestation statement: The following information was validated with the patient. Medical History Blind Diabetes HLD (hyperlipidemia) HTN (hypertension) Family History Family History Other No family history of cardiovascular disease Social History Social History Household Members: None Household Members Other:: dog and God Do you presently have visiting nurse or other home services: No (daughter helps her cook but doesn't) Alcohol intake: never Patient Tobacco Use Status: Former Tobacco user Tobacco use type: Cigarette e-Cigarette/Vaping Use: Never Used Advance Directives: Yes Advance Directives Information Provided: No Advance Directives on File: No Advance Directives Date on File: 01/13/22 service: No Physical Exam ED Vital Signs: Vital Signs - 24 hr 08/08/22 22:24 08/09/22 00:43 Temperature 99.1 F 98.1 F Pulse Rate 69 62 Respiratory Rate 18 14 Blood Pressure 150/42 H 181/62 H Pulse Oximetry 99 100 Oxygen Delivery Method Room Air Room Air BMI result Body Mass Index 29.5 Appearance: Alert. Oriented X 1 to self only. No acute distress. Eyes: Pupils equal, round and reactive to light. ENT: Pharynx normal. Neck: Normal inspection. Neck supple. No lymph nodes noted. No crepitus CVS: Normal heart rate and rhythm. Pulses normal. Normal S1 and S2 Respiratory: No respiratory distress. Breath sounds normal. No Wheezing. No rales Abdomen: Soft and nontender. No rigidity. No distention. good BS x4 Skin: Skin warm and dry. Normal skin color. Normal skin turgor. Extremities: No lower extremity edema. Neurovascular intact to all extremities. No Lacerations. No Rash Neuro: Oriented X 1 to self only. No motor deficit. No sensory deficit. Moving all extermities. No slurred speech Medications Administered Discontinued Medications Generic Name Dose Route Start Last Admin Trade Name Freq PRN Reason Stop Dose Admin Sodium Chloride 1,000 mls @ 999 mls/hr 08/08/22 23:30 08/09/22 00:56 Ns IV 08/09/22 00:30 999 mls/hr .Q1H1M JUANITA Administration Ondansetron HCl 4 mg 08/08/22 23:23 08/09/22 00:56 Ondansetron Hcl 4 Mg/2 Ml Vial IVPUSH 08/08/22 23:24 4 mg ONCE ONE Administration Medical Decision Making Medical Decision Making MDM Narrative: Attempted to contact family, no reply. Patient's sugar is normal no evidence for hypoglycemia. TSH is normal. No evidence for hypothyroid. Urine showed no signs of infection. White count is normal. Electrolytes are normal. LFTs are normal. Patient oriented to self only. Question dementia. Question safety at home. Will have crisis and case management evaluate patient in a.m.. Attempted to contact family multiple times no reply. CT scan of the head is pending. CT scan of the abdomen is pending Differential Diagnoses: Differential diagnosis (Will check patient's thyroid for hypothermia will check patient's urine for urinary tract infection. Chest x-ray for pneumonia, flu) Consideration of admission/observation: Consideration of Admission/Observation (Will check electrolytes and urine. Question UTI) Lab Attestation: I reviewed the patient's lab results. (Patient's white count is normal. BUN and creatinine is normal. TSH is normal. No evidence for hypothyroid. LFTs are normal. Urine negative for infection. ETOH negative no evidence for intoxication the and sugars 220 no evidence of hypoglycemia) Independent interpretation of EKG, rhythm strip, radiology study: Independent interp EKG,rhythm strip, radiology study My interpretation is Independent historian (e.g., spouse, EMS, friend): Independent historian (e.g., spouse, EMS, friend) Non-ED record review: Review of External (Non-ED) Record Tests considered but not performed: Tests Considered But Not Performed Chronic conditions affecting care (e.g., diabetes, HTN): Chronic conditions affecting care (e.g., diabetes, HTN) Care significantly affected by Social Determinants of Health (e.g., housing and economic circumstances, unemployment): Care affected by Social Determinants of Health Discharge Plan Discharge Clinical Impression: Dementia Patient Disposition: Still a Patient Prescriptions: No Action atorvastatin 20 mg tablet 1 tab PO DAILY ofloxacin 0.3 % drops 1 drp QID (DME) FreeStyle Lite Strips Strip MISCELLANEOUS TID prednisolone acetate 1 % drops,suspension 1 drp QID amlodipine 10 mg tablet 1 tab PO DAILY sertraline 25 mg tablet 1 tab PO DAILY lisinopril 40 mg tablet 1 tab PO DAILY Trulicity 1.5 mg/0.5 mL pen injector 0.5 ml subcut MO aspirin 81 mg tablet,delayed release (DR/EC) 1 tab PO DAILY
[2022-08-09] VITALS (8 sets, daily range): BP systolic 149–210; BP diastolic 33–110; PULSE 53–98; RESP 11–16; TEMP 36.4–36.7; O2SAT 98–100
[2022-08-09 00:22] LABS: Alanine Aminotransferase 12 U/L (0-31); Albumin Level 3.6 g/dL (3.5-5.0); Alkaline Phosphatase 61 U/L (39-117); Anion Gap 13 (12-20); Aspartate Amino Transferase 13 U/L (5-31); Bilirubin Direct < 0.2 mg/dL (0.0-0.5); Bilirubin Total 0.2 mg/dL (0.0-1.0); Blood Urea Nitrogen 27 mg/dL (9-16); Calcium 9.5 mg/dL (8.4-10.2); Carbon Dioxide 26 mmol/L (22-29); Chloride 104 mmol/L (96-108); Estimated Glomerular Filt Rate 49; Ethanol < 10 mg/dL; Glucose Random 218 mg/dL (60-115); Lipase 82 U/L (8-78); Potassium 4.6 mmol/L (3.3-5.1); Sodium 138 mmol/L (135-145); TSH reflex Free T4 1.95 uIU/mL (0.32-4.0); Total Protein 6.2 g/dL (6.5-8.0)
[2022-08-09 00:49] LABS: Glucose, Whole Blood 220 mg/dL (60-115)
[2022-08-09 00:54] LABS: Appearance Urine Clear; Color Urine Yellow; Glucose Urine UA 100 mg/dL (Negative); Leukocyte Esterase Urine Moderate (2+) (Negative); Nitrite Urine Negative (Negative); Specific Gravity - Urine <= 1.005 (1.005-1.025); UMIC TRIGGER UACC YES; Urine Blood Negative (Negative); Urine Ketones Negative (Negative); Urine Protein Negative (Neg-Trace)
[2022-08-09] MEDS: 0.9 % Sodium Chloride 1,000 ML 999 ML IV (00:56)
[2022-08-09] MEDS: ondansetron HCL 4 MG/2 ML VIAL IVPUSH ×2 (00:56→10:17)
[2022-08-09 01:05] LABS: Bacteria Urine None Seen (None Seen); Hyaline Casts Urine 0-2 /LPF (0-2); RBC Urine 0-2 /HPF (0-2); Squamous Epithelial Cell Urine 0-2 /HPF (0-2); WBC Urine 0-5 /HPF (0-5)
--- NOTE | 2022-08-09 06:38 | PC.NURSE ---
RN unable to fo ED RN reassessment r/t pt is unable to answer appropiatiately to questions. Pt A&O to person.
[2022-08-09 06:56] LABS: Glucose, Whole Blood 174 mg/dL (60-115)
[2022-08-09 07:29] LABS: Glucose, Whole Blood 162 mg/dL (60-115)
[2022-08-09] MEDS: Insulin Glargine,Hum.rec.anlog 100 UNIT/ML 10 ML VIAL 10 UNIT SUBCUT (07:43)
[2022-08-09] MEDS: lisinopriL 40 MG TABLET PO (07:43)
[2022-08-09] MEDS: Atorvastatin Calcium 20 MG TABLET PO (07:43)
[2022-08-09] MEDS: Insulin Lispro 100 UNIT/ML 3 ML VIAL SUBCUT (07:44)
--- NOTE | 2022-08-09 07:45 | PC.NURSE ---
pt alert but pleasantly confused, pt is able to state that she is in the hospital was not able to state the year, states that she came to the hospital for abd pain and nausea pt reports feeling much better denies nausea at this time. pt reports living alone at home with her puppy and her daughter comes over to help her out.
--- NOTE | 2022-08-09 10:04 | PC.NURSE ---
pt reports having nausea now after her coffee with cheese and a banana per pt's request earlier
--- NOTE | 2022-08-09 11:52 | MHC.CM.PN ---
Attempted to meet w/pt who was sleeping with blankets pulled over head. Call placed to dtr Samantha who states she was on her way over to pt's home to care for her as she is the compensated [employer]. Samantha was unaware that pt was in the ED and seemed upset that she did not receive a call. Notes state that family was not reachable when pt brought in. Dtr states pt has dementia and has periods of confusion and calls for EMS. Dtr states she assisted pt last evening w/HS care needs before leaving. Dtr states she will be at [facility] shortly to bring pt home. Discussed having family or additional [employer] services assist pt during the overnight to prevent unnecessary trips to the ED. Dtr to transport pt home.
== END 2022-08-09 12:10 | disposition still patient (30) ==
PROVIDERS: Emergency Provider Emergency Medicine Emergency Medical Services
DX: F03.90 Unspecified dementia, unspecified severity, without behavioral disturbance, psychotic disturbance, mood disturbance, and anxiety (principal); R41.82 Altered mental status, unspecified; R26.2 Difficulty in walking, not elsewhere classified; R51.9 Headache, unspecified; R10.2 Pelvic and perineal pain; Z87.891 Personal history of nicotine dependence; Z79.899 Other long term (current) drug therapy
CPT/HCPCS: 36415; 70450; 74176; 80048; 80076; 81001; 82077; 82947; 83690; 84443; 85025; 96361; 96374; 96376; 97162; 99285; J2405